=== PATIENT | female | born 2000 | race Caucasian/White ===

== ENCOUNTER 2021-09-14 13:03 | Emergency (ER) | payer BC, SELFPAY ==
[2021-09-14 13:13] VITALS: BP 120/79; PULSE 87; RESP 16; TEMP 37.4; O2SAT 100
--- NOTE | 2021-09-14 13:19 | ED.GENADULT ---
HPI - General Adult General Stated complaint: tightness in chest on left side Time Seen by Provider: 09/14/21 13:19 Source: patient Mode of arrival: ambulatory Limitations: no limitations Discharge Plan Discharge Follow-up/Referrals: Colin,JOSH Puentes [Primary Care Provider] -
--- NOTE | 2021-09-14 13:55 | ED.PEDGIA ---
HPI - Pediatric GI General Chief Complaint: Chest Pain Stated Complaint: tightness in chest on left side Time Seen by Provider: 09/14/21 13:19 Source: patient Mode of arrival: ambulatory Limitations: no limitations History of Present Illness HPI narrative: 21 yo F with no significant medical hx presents with c/o L sided chest tightness radiating to L upper back since 9am this AM. Reports pain worse when taking a deep breath. Has not taken any OTC medications to treat pain. Denies injury. Was sitting in class when pain first started. Reports covid 2 wks ago. States since covid she has been getting angina when exercising . She has not seen her PCP for this complaint. She denies SOB. No N/V. She vapes and uses depo for control. Denies hx of DVT or PE. Ambulatory with steady gait. Pt is in nursing school. States i really just want someone to rule out that it might be muscular before i waste a bunch of money at the ER . All systems reviewed and negative except as noted above. Related Data Home Medications Medication Instructions Recorded Confirmed medroxyprogesterone 150 mg/mL 150 ml IM [id number] 09/14/21 09/14/21 intramuscular suspension Allergies Allergy/AdvReac Type Severity Reaction Status Date / Time codeine Allergy Agitated Verified 09/14/21 13:22 hydrocortisone Allergy Unknown Verified 09/14/21 13:22 Pediatric Review of Systems Review of Systems: CONSTITUTIONAL: Denies fever, chills, or sweats. EYES: Denies visual changes, redness, or discharge. ENT: Denies rhinorrhea, congestion, sore throat, or otalgia. CARDIOVASCULAR: Reports chest pain. Denies palpitations, or edema. RESPIRATORY: Denies cough or dyspnea. GASTROINTESTINAL: Denies abdominal pain, nausea, vomiting, or diarrhea. GENITOURINARY: Denies dysuria or hematuria. SKIN: Denies rash or itching. MUSCULOSKELETAL: Denies back pain, joint pain, or myalgia. NEUROLOGIC: Denies headache, numbness, or weakness. PSYCHIATRIC: Denies anxiety or depression. All other systems reviewed are negative, except as documented in HPI. PMFSH Comments At time of signature, agree with nursing past medical, surgical, social and family history. There is no relevant family history pertinent to the presenting complaint. Pediatric Exam Narrative: Physical exam: GENERAL: This is a well-nourished, well-developed patient, in no apparent distress. HEAD: normocephalic, atraumatic. EYES: PERRL. Sclera clear/white. Vision is grossly intact. EARS: External ears normal NOSE: External nose normal NECK: Neck supple, non-tender without lymphadenopathy, masses or thyromegaly. CARDIOVASCULAR: Regular rate and rhythm without murmurs, gallops, or rubs. RESPIRATORY: Clear to auscultation. Breath sounds equal bilaterally. No wheezes, rales, or rhonchi. SKIN: warm, Dry, intact with no suspicious lesions or rash, good texture and turgor. NEURO: awake, alert, and oriented to person, place and time. There were no obvious focal neurologic abnormalities. MUSCULOSKELETAL: No joint tenderness, effusion, or edema noted. L sided upper chest pain, L rhomboid tenderness. General: Limitations: no limitations Course Course Level of Care: Express Care Visit Vital Signs Vital signs: Vital Signs Temperature 37.4 C 09/14/21 13:13 Pulse Rate 87 09/14/21 13:13 Respiratory Rate 16 09/14/21 13:13 Blood Pressure 120/79 09/14/21 13:13 Pulse Oximetry 100 09/14/21 13:13 Oxygen Delivery Room Air 09/14/21 13:13 Temperature 37.4 C 09/14/21 13:13 Pulse Rate 87 09/14/21 13:13 Respiratory Rate 16 09/14/21 13:13 Blood Pressure 120/79 09/14/21 13:13 Pulse Oximetry 100 09/14/21 13:13 Oxygen Delivery Room Air 09/14/21 13:13 reviewed Medical Decision Making MDM Narrative Medical decision making narrative: VSS. recommend pt go to the ER for further evaluation of CP due to intermittent L sided chest tightness today since 9am and also angina with exercise
== END 2021-09-14 13:37 | disposition left against medical advice (07) ==
PROVIDERS: Emergency Provider Nurse Practitioner Family; PCP Nurse Practitioner Adult Health
DX: R07.9 Chest pain, unspecified (principal); Z86.16 Personal history of COVID-19
CPT/HCPCS: 99211; G0463

== ENCOUNTER 2022-04-04 12:07 | Emergency (ER) | payer BC, SELFPAY ==
[2022-04-04 12:37] VITALS: BP 116/80; PULSE 104; RESP 16; TEMP 37.1; O2SAT 100
--- NOTE | 2022-04-04 13:19 | ED.URI ---
HPI - URI/Sore Throat General Chief Complaint: Upper Respiratory Infection Stated Complaint: COUGH/HEAD & EAR PRESSURE/DIARRHEA Time Seen by Provider: 04/04/22 12:50 Source: patient Mode of arrival: ambulatory Limitations: no limitations History of Present Illness HPI Narrative: Aurora is a 21-year-old female patient presenting to clinic today with complaints of cough, head congestion, ear pressure, and diarrhea. She reports she has had these symptoms ongoing for approximately 7 days now. She denies any known fever or chills. States she did take at home COVID test at the beginning of her symptoms and that was negative. MD elicited complaint: cough, nasal congestion and other (Diarrhea) Related Data Home Medications Medication Instructions Recorded Confirmed medroxyprogesterone 150 mg/mL 150 ml IM [id number] 09/14/21 04/04/22 intramuscular suspension Allergies Allergy/AdvReac Type Severity Reaction Status Date / Time codeine AdvReac Intermediate Agitated Verified 04/04/22 13:15 hydrocortisone AdvReac Mild Hives Verified 04/04/22 13:15 Review of Systems Review of Systems: Pertinent positives per HPI. Patient denies any fever, chills, rash, headache, visual changes, dizziness, cough, shortness of breath, chest pain, palpitations, nausea, vomiting, diarrhea, constipation, abdominal pain, or any urinary issues. PMFSH Past Medical History Medical History Initiation of Depo Provera Kidney stones Family History Family History Mother Hypertension Father Hypertension Grandparent Heart disease Social History Social History Smoking status: Current every day smoker Alcohol intake: current Alcohol use details: occasional Comments At the time of my signature, I reviewed and agree with the nursing past medical, surgical, social, and family history. There is no relevant family history pertinent to the patient complaint. Exam Narrative: General: Well-developed, well nourished, in no apparent distress Head: Normocephalic, atraumatic Eyes: Pupils equally round and reactive to light bilaterally, EOM intact, sclera and conjunctive clear, no discharge, lids normal Ears: TMs intact and clear, ear canals clear, no drainage, grossly hearing normal. Nose: Nares patent, clear nasal discharge, moderate inflammation, frontal sinus tenderness. Mouth: Oral pharynx without lesions or masses, good dentition, MMM. Postnasal drip Neck: Supple, trachea midline, no enlargement of anterior or posterior cervical nodes, no thyroid masses or goiter palpable. Cardio: Regular rate and rhythm, s1 and s2 normal, no murmur appreciated. Resp: Clear to auscultation bilaterally, no rhonchi, rales, wheezing or rubs Course Course Emergency Course: Portions of this record may have been created with voice recognition software. Level of Care: Express Care Visit Vital Signs Vital signs: Vital Signs Temperature 37.1 C 04/04/22 12:37 Pulse Rate 104 H 04/04/22 12:37 Respiratory Rate 16 04/04/22 12:37 Blood Pressure 116/80 04/04/22 12:37 Pulse Oximetry 100 04/04/22 12:37 Temperature 37.1 C 04/04/22 12:37 Pulse Rate 104 H 04/04/22 12:37 Respiratory Rate 16 04/04/22 12:37 Blood Pressure 116/80 04/04/22 12:37 Pulse Oximetry 100 04/04/22 12:37 Vital signs reviewed MDM - URI/Sore Throat MDM Narrative Medical decision making narrative: At the time of visit patient is resting comfortably on the exam table. I suspect the patient has URI/viral syndrome. Supportive measures were discussed with the patient she voiced understanding discharge instructions agrees to treatment plan. Differential Diagnosis Differential diagnosis: Likely upper respiratory infection, otitis media, sinusitis, viral infection, bronchitis, influenza
== END 2022-04-04 13:25 | disposition home or self-care (01) ==
PROVIDERS: Emergency Provider Nurse Practitioner Family
DX: B34.9 Viral infection, unspecified (principal); J06.9 Acute upper respiratory infection, unspecified; F17.290 Nicotine dependence, other tobacco product, uncomplicated
CPT/HCPCS: 99213; G0463

== ENCOUNTER 2024-04-29 17:29 | Emergency (ER) | payer BC, SELFPAY ==
[2024-04-29] VITALS (8 sets, daily range): BP systolic 113–143; BP diastolic 67–88; PULSE 71–115; RESP 16–18; TEMP 36.4–36.8; O2SAT 98–100
--- NOTE | ~2024-04-29 | XR_ITS ---
EXAMINATION: XR chest 2V Exam Date/Time: 04/29/2024 17:45 INSPECTOR WATCH ASSEMBLY HISTORY: cp Comparison: None. RESULT: Lines, tubes, and devices: None. Lungs and pleura: Clear. Cardiomediastinal silhouette: Normal. Other: No acute osseous or upper abdominal finding. IMPRESSION: No acute cardiopulmonary process. Reviewed, dictated and finalized at location [facility] [employer]
--- NOTE | 2024-04-29 17:31 | ECG_ITS ---
Test Date: 2024-04-29 17:41:00 Measurements Intervals [place] Rate: 123 P: 67 CO: 130 QRS: 84 QRSD: 72 T: 29 QT: 337 QTc: 483 Interpretive Statements SINUS TACHYCARDIA NONSPECIFIC T-WAVE ABNORMALITY ABNORMAL RHYTHM ECG No previous ECG available for comparison Electronically Signed On 04-29-2024 22:00:37 MANUFACTURING ENGINEERING INTERN by Shereen Estrada M.D.
[2024-04-29 18:05] LABS: Basophils Percent Auto 0.3 % (0.2-1.2); Eosinophils Percent Auto 0.3 % (0-4.4); Hematocrit 44.8 % (37.0-47.0); Hemoglobin 15.5 g/dL (12.0-15.0); Immature Granulocyte Absolute 0.02 K/mm3 (0.00-0.031); Immature Granulocyte Percent A 0.3 % (0-0.5); Lymphocytes Percent Auto 25.5 % (18.3-44.2); Mean Corpuscular HGB Conc 34.6 g/dl (32-36); Mean Corpuscular Hemoglobin 30.2 pg (26-34); Mean Corpuscular Volume 87.3 fl (80-100); Mean Platelet Volume 9.8 fl (7.4-10.4); Monocytes Absolute Auto 0.2 K/mm3 (0.1-0.6); Monocytes Percent Auto 3.1 % (2.6-8.5); Neutrophils Absolute Auto 4.7 K/mm3 (1.3-6.7); Neutrophils Percent Auto 70.5 % (45.5-73.1); Platelet Count Result 279 k/mm3 (150-375); Red Blood Count 5.13 M/mm3 (4.2-5.4); Red Cell Distribution Width 11.7 % (11.5-14.5); White Blood Count 6.7 K/mm3 (4.5-10.0)
[2024-04-29 18:21] LABS: INR 1.1; Partial Thromboplastin Time 26.2 Seconds (22.3-36.8); Prothrombin Time 14.1 Seconds (11.1-14.7)
[2024-04-29 19:29] LABS: D Dimer < 0.27 ug/mL (<0.48)
--- NOTE | 2024-04-29 20:33 | ECG_ITS ---
Test Date: 2024-04-29 20:54:57 Measurements Intervals [place] Rate: 80 P: 15 NE: 134 QRS: 52 QRSD: 77 T: 22 QT: 348 QTc: 402 Interpretive Statements SINUS RHYTHM Compared to ECG 04/29/2024 17:41:00 Sinus tachycardia no longer present T-wave abnormality no longer present Electronically Signed On 04-29-2024 21:58:36 MANAGER CARD by Shereen Estrada M.D.
[2024-04-29 20:48] LABS: Alanine Aminotransferase 38 U/L (6-35); Albumin Level 5.2 g/dL (3.5-5.1); Alkaline Phosphatase 79 U/L (38-126); Anion Gap 16 mmol/L (4-12); Aspartate Amino Transferase 36 U/L (14-36); Bilirubin,Total 0.9 mg/dL (0.2-1.3); Blood Urea Nitrogen 16 mg/dL (7-17); Calcium 9.8 mg/dL (8.4-10.2); Carbon Dioxide 19 mmol/L (22-30); Chloride 102 mmol/L (98-107); Estimated Glomerular Filt Rate > 60; Glucose 107 mg/dL (65-110); Lipase 103 U/L (23-300); Potassium 3.8 mmol/L (3.4-5.0); Sodium 137 mmol/L (137-145)
[2024-04-29 20:59] LABS: Troponin I < 0.012 ng/mL (0.000-0.034)
[2024-04-29 21:05] LABS: Magnesium 2.2 mg/dL (1.6-2.3)
--- NOTE | 2024-04-29 21:26 | ED_ITS ---
HPI - Chest Pain General Chief Complaint: Chest Pain Stated Complaint: chest pain sob Time Seen by Provider: 04/29/24 20:27 Source: patient Mode of arrival: ambulatory Limitations: no limitations History of Present Illness HPI narrative: Patient is a 23-year-old female who presents the ED with report of shortness of breath. Patient reports over the past 2 days, she has been having shortness of breath-worse with exertion, heart palpitations, nausea, dizziness/lightheadedness-worse with movements. She also reports having intermittent left-sided chest pain. States she had to call off work today due to her symptoms. Has never had symptoms like this before. Denies recent cough or cold symptoms, syncope, pain or swelling in legs, history of blood clots. Related Data Allergies Allergy/AdvReac Type Severity Reaction Status Date / Time hydrocortisone Allergy Unknown Verified 04/29/24 17:31 codeine AdvReac Irritable Verified 04/29/24 17:31 Review of Systems 2 Review of Systems: All systems reviewed & are unremarkable except as noted in HPI. All systems reviewed & are unremarkable except as noted in HPI and below Exam 2 Narrative: GENERAL: Well appearing, well-nourished, non-toxic, in no acute distress. HEAD: Normocephalic, atraumatic. RESPIRATORY: Airway patent, respirations nonlabored. Clear to auscultation bilaterally, no rales, rhonchi, wheezing. No focal lung sounds. CARDIOVASCULAR: Borderline tachycardic with regular rhythm without murmurs, rubs, or gallops. MUSCULOSKELETAL: Moves all extremities. No gross deformities. No peripheral edema. No calf tenderness. SKIN: Warm, dry, normal color. NEURO: A&O X3. Speech clear. Cranial nerves II-XII grossly intact. Steady gait. No ataxic movements. No focal deficits. PSYCHIATRIC: Appropriate mood and affect. Normal interaction. Course Vital Signs Vital signs: Vital Signs Temperature 97.5 F L 04/29/24 17:33 Pulse Rate 115 H 04/29/24 17:33 Respiratory Rate 16 04/29/24 17:33 Blood Pressure 132/75 04/29/24 17:33 Pulse Oximetry 100 04/29/24 17:33 Oxygen Delivery Room Air 04/29/24 17:33 Temperature 97.8 F 04/29/24 23:00 Pulse Rate 71 04/29/24 23:00 Respiratory Rate 18 04/29/24 23:00 Blood Pressure 123/88 04/29/24 23:00 Pulse Oximetry 99 04/29/24 23:00 Oxygen Delivery Room Air 04/29/24 21:09 MDM - Chest Pain MDM Narrative Medical decision making narrative: Patient presented to ED with 2 day history of dizziness, lightheadedness, palpitations, shortness breath, chest pressure. Patient mildly tachycardic upon arrival. In no acute distress at the time of my evaluation. Oxygen is 100% on room air. Initial EKG with sinus tachycardia, some nonspecific ST changes, likely related to elevated rate. These were improved on repeat EKG as heart rate normalized. Troponin is undetectable X2. D-dimer is within normal range. Chest x-ray is clear. Laboratory studies are otherwise concerning for mild dehydration. Bicarb is low at 19. She does have a gap of 16. Blood sugar is normal. Orthostatic vital signs were obtained and positive by heart rate with a 20 point increase with position changes. Blood pressure remained fairly stable. Will initiate fluids. Patient feeling improved after fluids. She was ambulated throughout the ED afterwards and there is no significant tachycardia or hypoxia noted with ambulation. Feel patient's symptoms were likely related to dehydration. Otherwise feel she is safe for discharge home at this time. Advised to stay well hydrated at home. Discussed that if symptoms continue, she may require Holter monitor for further evaluation. Recommended close follow-up with PCP for further eval, given strict return precautions. She agrees with plan and feels comfortable going home. Discharged in stable condition. Medical Records Data Attestation: I reviewed the patient's medical records. Lab Data Attestation: I reviewed the patient's lab results. 04/29/24 17:52 04/29/24 17:52 Labs: Lab Results 04/29/24 04/29/24 Range/Units 17:52 20:55 WBC 6.7 (4.5-10.0) K/mm3 RBC 5.13 (4.2-5.4) M/mm3 Hgb 15.5 H (12.0-15.0) g/dL Hct 44.8 (37.0-47.0) % MCV 87.3 (80-100) fl MCH 30.2 (26-34) pg MCHC 34.6 (32-36) g/dl RDW 11.7 (11.5-14.5) % Plt Count 279 (150-375) k/mm3 MPV 9.8 (7.4-10.4) fl Immature Gran % (Auto) 0.3 (0-0.5) % Neut % (Auto) 70.5 (45.5-73.1) % Lymph % (Auto) 25.5 (18.3-44.2) % Granite % (Auto) 3.1 (2.6-8.5) % Eos % (Auto) 0.3 (0-4.4) % Baso % (Auto) 0.3 (0.2-1.2) % Lymph # (Auto) 1.70 (0.9-3.2) K/mm3 Granite # (Auto) 0.2 (0.1-0.6) K/mm3 Eos # (Auto) 0.0 (0-0.3) K/mm3 Baso # (Auto) 0.0 (0.0-0.1) K/mm3 Abs Immat Gran (auto) 0.02 (0.00-0.031) K/mm3 Absolute Neuts (auto) 4.7 (1.3-6.7) K/mm3 Absolute Nucleated RBC 0.000 (0.0-0.012) K/mm3 Nucleated RBC % 0.0 (0.0-0.2) % PT 14.1 (11.1-14.7) Seconds INR 1.1 APTT 26.2 (22.3-36.8) Seconds D-Dimer < 0.27 (<0.48) ug/mL Sodium 137 (137-145) mmol/L Potassium 3.8 (3.4-5.0) mmol/L Chloride 102 (98-107) mmol/L Carbon Dioxide 19 L (22-30) mmol/L Anion Gap 16 H (4-12) mmol/L BUN 16 (7-17) mg/dL Creatinine 0.69 L (0.7-1.0) mg/dL Estim Creat Clear Calc Not Reportable Estimated GFR > 60 (59 - ) Glucose 107 (65-110) mg/dL Calcium 9.8 (8.4-10.2) mg/dL Magnesium 2.2 (1.6-2.3) mg/dL Total Bilirubin 0.9 (0.2-1.3) mg/dL AST 36 (14-36) U/L ALT 38 H (6-35) U/L Alkaline Phosphatase 79 (38-126) U/L Troponin I < 0.012 < 0.012 (0.000-0.034) ng/mL Total Protein 8.0 (6.3-8.2) g/dL Albumin 5.2 H (3.5-5.1) g/dL Lipase 103 (23-300) U/L Imaging Data Attestation: I personally reviewed and interpreted this imaging study as follows: Radiologist's impression: ITS Impressions Chest X-Ray 04/29/24 17:58 IMPRESSION: No acute cardiopulmonary process. ECG Data EKG #1: Attestation: I personally reviewed and interpreted this ECG as follows: ECG completion date: 04/29/24 ECG completion time: 17:41 EKG Interpretation: tachycardia (123), sinus rhythm and non-specific ST changes EKG #2: Attestation: I personally reviewed and interpreted this ECG as follows: ECG completion date: 04/29/24 ECG completion time: 20:54 EKG Interpretation: normal rate (80), sinus rhythm and no ST changes Discharge Plan Discharge Clinical Impression: Shortness of breath, Lightheadedness, Dehydration Patient Disposition: Home, Self-Care Condition: Stable Instructions: Antibiotic Form, Dehydration (ED), Lightheadedness (ED) Additional Instructions: Your workup here was reassuring. Stay very well hydrated at home. Recommend plenty of fluids, electrolyte rich fluids-Gatorade, Pedialyte, body armor. Follow-up with your primary care doctor for further evaluation. Return to the ED if you experience worsening or severe symptoms, difficulty breathing, worsening chest pain, unable to keep down food or drink, pain or swelling in legs, passing out, or any other symptoms of concern. Patient Language: Ukrainian Follow-up/Referrals: Loly Perdue DO [Physician] - (PRIMARY CARE) PHYSICIAN,SUPERVISOR [employer] [Primary Care Provider] - Stand Alone Forms: Work/School Release IP Time of Disposition: 00:01
[2024-04-29 21:42] LABS: Troponin I < 0.012 ng/mL (0.000-0.034)
[2024-04-29] MEDS: SODIUM CHLORIDE 0.9% IV 1,000 ML 999 ML IV CONT (22:17)
[2024-04-29] MEDS: SODIUM CHLORIDE 0.9% IV 500 ML 999 ML IV CONT (22:19)
== END 2024-04-30 00:09 | disposition home or self-care (01) ==
PROVIDERS: Emergency Medicine; Emergency Provider Physician Assistant
DX: R06.02 Shortness of breath (principal); R42 Dizziness and giddiness; E86.0 Dehydration; R00.0 Tachycardia, unspecified; R94.31 Abnormal electrocardiogram [ECG] [EKG]
CPT/HCPCS: 36415; 71046; 80053; 83690; 83735; 84484; 85025; 85380; 85610; 85730; 93005; 96360; 99284; J7030; J7040